=== PATIENT | female | born 1975 | race Caucasian/White ===

== ENCOUNTER 2017-09-01 05:45 | Inpatient (IN) | payer OTHER ==
[2017-08-18 08:31] VITALS: BMI 32.9
[2017-09-01] MEDS ORDERED: ceFAZolin IV 2 gm in Dextrose 2 GM/50 ML BAG IVPB ONE (07:39)
[2017-09-01] MEDS ORDERED: Bupivacaine 0.25% 20 ML INJ IJ ONE (07:39)
[2017-09-01] MEDS ORDERED: Midazolam 2 MG/2 ML VIAL ONE (07:49)
[2017-09-01] MEDS ORDERED: Propofol 10 mg/ml Inj (20 ML) ONE (07:50)
[2017-09-01] MEDS ORDERED: Succinylcholine Chloride 20 mg/ml Syr (5 ml) IV ONE (08:08)
[2017-09-01] MEDS ORDERED: Rocuronium 10 mg/ml (5 ml) ONE ×2 (08:08→10:27)
[2017-09-01] MEDS ORDERED: Oxycodone/Acetaminophen 5/325 mg Tab PO PRN (12:18)
--- NOTE | 2017-09-01 12:24 | PCM.SURG1 ---
Surgeon's Initial Post Op Note - Surgeon's Notes Surgeon: Mari Vela MD Director [employer]: MD Randi Oliver CNRN Pre-Operative Diagnosis: Abnormal uterine bleeding, plevic pain Operative Findings: 12 week sizse anterverted utuers, normal appearng uterus, tubes adn ovaries bilalleary. bilateural uretral jets visulzed on cystscopy, adhesin of omentum to anteiror abodmnal wall, anterior bladder adhesions Post-Operative Diagnosis: same as above, adhesions Operation Performed: Total robotic hysterecotmy, bilateral salpingecotmy, cystsoscpy with stent uretral visulzatin, lysis of adhesins Specimen/Specimens Removed: uterus, cervix Estimated Blood Loss: EBL {In ML}: 25 (Urine output 250cc) Blood Products Given: N/A Drains Used: No Drains Post-Op Condition: Good Date of Surgery/Procedure: 09/01/17 Time of Surgery/Procedure: 08:00
[2017-09-01] MEDS ORDERED: cefOXitin IV 1 gm in Dextrose 1 GM/50 ML BAG IVPB SCH (12:30)
[2017-09-01] MEDS ORDERED: Lactated Ringer's 1,000 ML IV ONE (13:00)
[2017-09-01] MEDS: HYDROmorphone 0.5 mg/0.5 ml ISec IVP PRN ×2 (13:00→13:33)
[2017-09-01] MEDS: cefOXitin IV 1 gm in Dextrose 1 GM/50 ML BAG IVPB SCH ×2 (15:30→23:33)
[2017-09-01] MEDS: Simethicone 80 mg Chewtab PO SCH ×2 (15:31→18:48)
[2017-09-01] MEDS: Oxycodone/Acetaminophen 5/325 mg Tab PO PRN (19:05)
[2017-09-02 06:58] LABS: HEMOGLOBIN 9.7 g/dL (11.0-16.0); MEAN CELL VOLUME 81.6 fL (81.0-99.0); MEAN CORPUSCULAR HEMOGLOBIN 27.8 pg (27.0-31.0); RBC 3.49 Mil/uL (3.80-5.20); RED CELL DISTRIBUTION WIDTH 14.2 % (11.5-14.5); WHITE BLOOD COUNT 7.9 K/uL (4.8-10.8)
[2017-09-02] MEDS: Oxycodone/Acetaminophen 5/325 mg Tab PO PRN ×3 (07:28→13:10)
[2017-09-02 07:36] LABS: ALB/GLOB RATIO 1.1 (1.0-2.1); ALBUMIN 3.1 g/dL (3.5-5.0); ALT/SGPT 24 U/L (9-52); AST/SGOT 13 U/L (14-36); BLOOD UREA NITROGEN 9 mg/dL (7-17); CALCIUM 8.5 mg/dl (8.6-10.4); GFR AFRICAN-AMERICAN > 60; GFR NON-AFRICAN AMERICAN > 60
[2017-09-02 08:10] VITALS: RESP 18
[2017-09-02] MEDS: cefOXitin IV 1 gm in Dextrose 1 GM/50 ML BAG IVPB SCH (08:38)
[2017-09-02] MEDS: Simethicone 80 mg Chewtab PO SCH ×2 (08:40→13:16)
--- NOTE | 2017-09-02 08:44 | CP.PCM.PN ---
Subjective - Date & Time of Evaluation Date of Evaluation: 09/02/17 Time of Evaluation: 08:10 - Subjective Subjective: Pt seen and examien daxa severe pain LLQ 9/10, localized, no nause, vomiting , feer, chills. pt not yet ambuating, +morelos, not passign flatus., toelrating regular diet. pt refused IV Pain medication. Objective - Vital Signs/Intake and Output Vital Signs (last 24 hours): Temp Pulse Resp BP Pulse Ox 99.2 F 73 18 104/73 96 09/02/17 08:08 09/02/17 08:08 09/02/17 08:08 09/02/17 08:08 09/02/17 08:08 Intake and Output: 09/02/17 09/02/17 06:59 18:59 Intake Total 1375 Output Total 700 Balance 675 - Medications Medications: Current Medications Cefoxitin Sodium (Mefoxin Iv 1 Gm Duplex) 1 gm in 50 mls @ 50 mls/hr IVPB Q8H [facility] PRN Reason: Protocol Stop: 09/02/17 08:59 Last Admin: 09/02/17 08:38 Dose: 50 mls/hr Ketorolac Tromethamine (Toradol) 30 mg IVP Q6 [facility] Last Admin: 09/02/17 08:31 Dose: 30 mg Ondansetron HCl (Zofran Inj) 4 mg IVP ONCE PRN PRN Reason: Nausea/Vomiting Oxycodone/Acetaminophen (Percocet 5/325 Mg Tab) 2 tab PO Q4H PRN PRN Reason: Pain, moderate (4-7) Stop: 09/04/17 12:19 Last Admin: 09/02/17 07:28 Dose: 2 tab Oxycodone/Acetaminophen (Percocet 5/325 Mg Tab) 1 tab PO Q4 PRN PRN Reason: Pain, Mild (1-3) Stop: 09/04/17 12:19 Simethicone (Mylicon Chew Tab) 80 mg PO TID [facility] Last Admin: 09/02/17 08:40 Dose: 80 mg - Labs Labs: 09/02/17 06:51 09/02/17 06:51 - Constitutional Appears: Well, Non-toxic, In Acute Distress - Head Exam Head Exam: ATRAUMATIC, NORMAL INSPECTION - Eye Exam Eye Exam: EOMI Pupil Exam: PERRL - ENT Exam ENT Exam: Mucous Membranes Moist - Neck Exam Neck Exam: Normal Inspection - Respiratory Exam Respiratory Exam: Clear to Ausculation Bilateral, NORMAL BREATHING PATTERN - Cardiovascular Exam Cardiovascular Exam: +S1, +S2 - GI/Abdominal Exam GI & Abdominal Exam: Soft, Tenderness, Normal Bowel Sounds Additional comments: TTP LLQ no guarding no rebound tendnerss, no rigidty inciocsn c/d/i no vaignal bleeding - Rectal Exam Rectal Exam: Deferred - Extremities Exam Extremities Exam: Normal Inspection. absent: Calf Tenderness, Full ROM, Joint Swelling, Normal Capillary Refill, Pedal Edema, Tenderness Additional comments: negative neema's sign - Back Exam Back Exam: NORMAL INSPECTION. absent: CVA tenderness (L), CVA tenderness (R), Full ROM, muscle spasm, paraspinal tenderness, rash noted, tenderness, vertebral tenderness - Skin Skin Exam: Dry, Intact, Normal Color, Warm Assessment and Plan (1) S/P hysterectomy Assessment & Plan: 42 y/o sp TRH b/l salpingecotmy cordell POD #1 1. Pain managment: Toradol 30mg IVP xq 1 stat 2. dc home 3. activity out of grace with assistance 4. Regualr diet 5. AM labs 6. will reevate possibel dc in PM Status: Acute
[2017-09-02 16:22] VITALS: BP 130/82; PULSE 71; TEMP 98; O2SAT 18
--- NOTE | 2017-09-05 23:36 | OP ---
PROCEDURE DATE: 09/01/2017 TIME OF SURGERY: 07:45 SURGEON: Mari Vela MD ASSISTANTS: Lei Davidson MD and NED Whittaker. ANESTHESIA: General with ET tube. PREOPERATIVE DIAGNOSES: Abnormal uterine bleeding, chronic pelvic pain. OPERATIVE FINDINGS: A 12- to 14-week size bulky uterus. Normal appearing uterus, tubes, and ovaries bilaterally. Bilateral ureteral jets visualized on cystoscopy with dense adhesions of omentum to the anterior abdominal wall and anterior bladder adhesions noted. Normal bladder and ureters anatomy as per cystoscopy at the end of the procedure. INDICATION FOR PROCEDURE: Worsening pelvic pain, worsening abnormal uterine bleeding, failed conservative management. POSTOPERATIVE DIAGNOSES: Abnormal uterine bleeding, chronic pelvic pain, and adhesions. PROCEDURE PERFORMED: Total robotic hysterectomy, bilateral salpingectomy, lysis of adhesions, cystoscopy with fluorescein dye placement with stent. SPECIMENS REMOVED: Uterus and cervix, right and left fallopian tubes. ESTIMATED BLOOD LOSS: 25 mL. URINE OUTPUT: 250 mL. BLOOD PRODUCTS: None. COMPLICATIONS: None. PROCEDURE: Total robotic hysterectomy, right and left bilateral salpingectomy, greater than 250 g, lysis of adhesions, cystoscopy, extensive lysis of adhesions and enterolysis. Diagnostic cystoscopy with fluorescein dye. DESCRIPTION OF PROCEDURE: This is a 42-year-old female with symptomatic chronic pelvic pain and abnormal uterine bleeding that failed conservative medical therapy. The patient was appropriately counseled on all interventions and had a complete and extensive preoperative workup, which included an ultrasound, a Pap smear, chemistry, hematology studies, and an endometrial biopsy. The patient reported these symptoms and problems as debilitating, adversely affecting her quality of life. Following a period of failed conservative management in patient, a decision was made to proceed with a more invasive approach to address the above-noted problems. A decision was finally made to proceed with a total robotic hysterectomy with bilateral salpingectomy. A detailed description of the robotic procedure was given to the patient. All indications, risks, benefits, and alternatives, and treatments were reviewed and printed material was also given to the patient regarding robotic surgery. The patient elected to proceed with the proposed procedure, fully understanding all the risks and benefits associated with the proposed robotic procedure. After proper consent was obtained for the procedure, was taken to the operating room, proper patient identification was completed. She was placed in the dorsal lithotomy position. General anesthesia was induced without difficulty. Her legs were placed and adjusted with Basilio stirrups. Careful attention was placed to avoid hyperflexion or hyper-rotation of the lower extremities at the hips and knee joints. She was prepped and draped appropriately for robotic-assisted hysterectomy. Connelly catheter was inserted under sterile conditions. The weighted-speculum was placed in the vagina. Anterior lip of cervix was grasped with the tenaculum and cervix was then mildly dilated with a Mafengwo uterine manipulator that was inserted through the cervix and secured after the uterus was sounded. The weighted-speculum and tenaculum were then removed from the patient's vagina. Attention was then turned to the patient's abdomen. Prior to this, a cystoscopy was performed and a stent was then placed with fluorescein dye. Following this, a vascular device was then inserted. The attention was then turned to the abdomen. Local anesthetic of 0.25% Marcaine with epinephrine were utilized to infiltrate the skin prior to all abdominal incisions. A total of 15 mL of 0.25% Marcaine were utilized throughout the procedure. While tenting the abdominal wall up, a Veress needle was inserted at a 40-degree angle. With CO2 insufflation, there was a drop in intraperitoneal pressure confirming correct placement. Insufflation was carried out to approximately 3 L. A blunt robotic trocar and tube were introduced through the camera port in the midline approximately at the supraumbilical area. Then, using a 30-degree lens robotic scope, initial survey of the patient's abdomen revealed an enlarged globular uterus about 12 to 14 size with extensive intraabdominal, intrapelvic, peritoneal adhesions of omentum to the anterior abdominal wall, and also of the bladder to the anterior abdominal wall and uterus. Under direct visualization, three additional robotic ports were utilized for this procedure. The first one approximately 7 cm superior to the superior iliac crest on the right, a second port was approximately 7 cm superior to the superior iliac crest on the left, and third one was approximately 8 cm right lateral to the camera port and midline. All robotic ports were approximately 8 mm in length and an surgical supply assistant port was inserted approximately 12 mm lateral to the camera port and the VersaStep trocar and sleeve were introduced in the recommended fashion. The Veress and sheath were first introduced through a 1 cm skin incision, the Veress then removed and trocar was inserted through the sheath and secured. Again, excellent visualization noted confirming intraperitoneal placement. Placement of the trocars were all accomplished under careful and meticulous placement under direct visualization. Following placement of all trocars, a LigaSure device was then inserted to help dissect the omental anterior adhesions to help get better view of our surgical specimen. Following placement of all trocars the da Sergey robotic system was docked using the parallel-side docking method after the patient was placed in moderate Trendelenburg position, the small bowel having slipped away out of the pelvis. The ureter was positively identified, the following instruments were utilized for the procedure. The bipolar cautery device and monopolar dallas finally are progressed. Prior to the start of the hysterectomy, lysis of adhesions was done in order to access the uterus and the adnexa to complete the hysterectomy. Sharp and blunt dissection were utilized to lyse the dense peritoneal adhesions and small bowel adhesion with excision. Prior to the start of the hysterectomy, both ureters were visualized along the full course, bilaterally. Both fallopian tubes were transected along the mesosalpinx for later extractions along. On the patient's right side, the round ligaments were identified, cauterized, and transected. The broad ligament was divided all the way down to the uterocervical junction. The bladder flap was then created by transecting the vesicoperitoneum over the bladder resection. The left side was proceeded in a similar fashion, the left round ligament to the broad ligament to the anterior portion of the broad down to the bladder flap to the level of the cervicouterine junction. Uterine vessels on both sides were then sealed and transected. The uterosacral ligaments were then sealed and transected. The monopolar dallas were utilized to complete the colpotomy incision around the vesicovaginal ring. Excellent hemostasis was noted. The uterus and cervix, right and left fallopian tubes were delivered transvaginally through the colpotomy incision and sent to pathology for permanent analysis. The colpotomy incision was closed with a 2-0 V-Loc in a continuous fashion with excellent hemostasis. There was good suspension noted and the areas were again once again identified. Vaginal vault suspension was achieved by extending the vaginal septum at the base of the uterosacral ligaments bilaterally with good hemostasis noted. Using a 3-0 Monocryl suture, the peritoneum over the colpotomy incision, the uterosacral ligaments was reapproximated in continuous fashion. Pelvis and abdomen were irrigated copiously and cleared off all clots and debris. Excellent hemostasis was once noted again, and all robotic and laparoscopic instruments were removed under direct visualization. The robotic arms were undocked and the da Sergey robotic system was wheeled away from the patient's bedside. Both the surgical supply assistant and camera ports were closed with the fascial ports with 0 Vicryl suture material in interrupted fashion, pneumoperitoneum was released and all skin incisions were closed using 4-0 Monocryl in a subcutaneous fashion. Dermabond was applied to the incision. At the conclusion of the procedure, a diagnostic cystoscopy was performed. The Connelly catheter was removed. The bladder was distended with approximately 300 mL of normal saline and 17-Hebrew 30-degree cystoscope was then introduced revealing the cervical bladder anatomy completely. The trigone and the dome of the bladder appeared normal. Both ureteral orifices appeared normal and were effluxing urine freely. The ureter appeared normal. Connelly catheter was re-inserted. The patient emerged from general anesthesia without difficulty and was taken to the recovery room in stable condition. Prior to the incision, the patient received antibiotics. At the end of the procedure, all needles, sponge, and instrument counts were noted to be correct x2. The patient tolerated the procedure well and was transferred to the recovery room in stable condition. Mari Vela MD
== END 2017-09-02 16:45 | disposition home or self-care (01) | DRG 741 ==
LOC: C.SDS 05:45 → C.9E 12:19 → C.9S 12:19 → C.4M 12:39
PROVIDERS: ADMIT Obstetrics & Gynecology; ATTEND Obstetrics & Gynecology
PROC: 0UT74ZZ Resection of Bilateral Fallopian Tubes, Percutaneous Endoscopic Approach (ICD-10-PCS; 2017-09-01)
PROC: 8E0W4CZ Robotic Assisted Procedure of Trunk Region, Percutaneous Endoscopic Approach (ICD-10-PCS; 2017-09-01)
PROC: 0TJB8ZZ Inspection of Bladder, Via Natural or Artificial Opening Endoscopic (ICD-10-PCS; 2017-09-01)
PROC: 0UT94ZZ Resection of Uterus, Percutaneous Endoscopic Approach (ICD-10-PCS; principal; 2017-09-01 07:45)
PROC: 0DNW4ZZ Release Peritoneum, Percutaneous Endoscopic Approach (ICD-10-PCS; 2017-09-01 07:45)
DX: C53.9 Malignant neoplasm of cervix uteri, unspecified (principal); N93.9 Abnormal uterine and vaginal bleeding, unspecified; N73.6 Female pelvic peritoneal adhesions (postinfective); G89.29 Other chronic pain; R10.2 Pelvic and perineal pain